=== PATIENT | male | born 1960 | race Caucasian/White ===

== ENCOUNTER 2017-08-29 08:54 | Day surgery (SDC) | payer BC ==
[2017-08-29] MEDS ORDERED: FAMOTIDINE 20 MG TAB PO ONE (09:01)
[2017-08-29] MEDS ORDERED: ASPIRIN EC 325 MG TAB PO ONE (09:01)
[2017-08-29] MEDS ORDERED: diphenhydrAMINE 25 MG CAP PO ONE (09:01)
[2017-08-29] MEDS ORDERED: DIAZEPAM 5 MG TAB PO ONE (09:01)
[2017-08-29] MEDS ORDERED: NS 1,000 ML IV ONE (09:01)
[2017-08-29 09:46] LABS: PLATELET COUNT 215 10^3/uL (150-400)
[2017-08-29 09:56] LABS: INR 1.02 (0.83-1.16); PROTIME(PATIENT) 13.6 SEC (12.0-15.0)
--- NOTE | 2017-08-29 10:51 | CPEKG ---
Heart Rate: 63 RR Interval: 952 P-R Interval: 216 QRSD Interval: 88 QT Interval: 404 QTC Interval: 414 P Girard: 52 QRS Girard: 83 T Wave Girard: 48 EKG Severity - ABNORMAL ECG - EKG Impression: SINUS RHYTHM EKG Impression: FIRST DEGREE AV BLOCK EKG Impression: Possible left atrial abnormality Electronically Signed By: Bruno Beavers 29-Aug-2017 11:06:02
--- NOTE | 2017-08-29 11:01 | PDPROPOC ---
Sedation Plan of Care Sedation Plan of Care: vital signs stable, mental status noted, patient educated of risks, benefits, alternatives, patient can tolerate sedation ASA Classification: ASA 2 Planned drugs: fentanyl, midazolam Mallampati Score: Class 2 Mallampati Reference Image: Patient passed 3-3-2 rule?: Yes
--- NOTE | 2017-08-29 11:01 | PDHPUP ---
History & Physical Update H&P update statement: This history and physical update is based on an assessment of the patient which was completed after admission or registration (within 24 hours), but prior to the surgery/procedure. H&P update: H&P reviewed & patient examined, no change in patient's condition since H&P completed
[2017-08-29] MEDS ORDERED: fentaNYL 100 MCG/2 ML INJ ONE (11:04)
[2017-08-29] MEDS ORDERED: LIDOCAINE 1% 300 MG/30 ML SDV ONE (11:04)
[2017-08-29] MEDS ORDERED: VERAPAMIL 5 MG/2 ML VIAL ONE (11:04)
[2017-08-29] MEDS ORDERED: MIDAZOLAM 2 MG/2 ML VIAL ONE (11:04)
[2017-08-29] MEDS ORDERED: HEPARIN 10,000 UNIT/10 ML MDV (1,000 UNIT/ML) ONE (11:05)
[2017-08-29] MEDS ORDERED: IOPAMIDOL (ISOVUE-370) 150 ML BTL IV ONE (11:05)
[2017-08-29] MEDS ORDERED: NITROGLYCERIN 1,500 MCG/15 ML VIAL MISC ONE (11:50)
--- NOTE | 2017-08-29 11:51 | PDDXCAT ---
Diagnostic Cath Note - . Date: 08/29/17 Copy Cutter: Nick Indication: CCC Class III and IV angina on medical treatment - Procedure Access: right wrist Procedure: left heart catheterization, coronary angiography - Materials Left Heart Cath size: 5F Left Heart Cath materials: standard multipack (JL4, JR4, pigtail), JL3.5 - Findings-Left Heart Catheterization LM: LM is 5mm in size. It trifucates into circumflex, ramus, and LAD system. LAD: There is a 50% ostial LAD lesion. There is instent and in-segment stenosis with serial lesions of 65 and 70%. There is an 80% lesion distal to the LAD stent. LCX: CIrc is 3mm in size. There is a 65% proximal circumflex lesion. There is a 90% obstruction of the circumflex prior to a triple branching obtuse marginal system. There is a bridging collateral from the distal left circumflex to the distal right. RCA: The RCA is 3.5mm in size and dominant. There is a 70% proximal narrowing of the RCA. There is an 90% mid-RCA lesion. The distal RCA is 100% occluded. There is left to right collateral to the distal right coronary. EDP: LVEDP is 20mmHg. LVEF: Normal at 60%. Wall motion: On the LV gram there is normal LV systolic funstion. The EF is 60% . There is no resting segmental wall motion abnormalities. The visualized portion of the thoracic aorta reveals three sinuses of valsalva most consistent with a trileaflet valve. There is no gradient on pullback accross the aortic valve. Complications: None. Estimated blood loss: <50ml Closure method: TR Band Assessment: The patient has a history of HIV with low viral load. He has triple vessel disease and had a bare-metal stent placed in the LAD in 1998. On angiography today, the patient has severe lime vessel coronary diseae involving the right coronary artery, left circumflex and LAD as previouly described. There is relatively well preseved EF, no significant mitral regurgitation or aortic stenosis. Plan: I spoke to Dr. Cruz who agrees with the plan for non-emergent bypass surgery. We will limit the patient's activity until he has the bypass surgery. Antiplatelet therapy with ASA is also recommended specifically a dose of 162 mg per day. His BP also needs to be controlled for a goal systolic pressure of less than 130 mmHg over the terminal press operator. The cholesterol should be treated to a goal LDL cholesterol of 70mg/dL or less, non HDL cholesterol to less than 100mg/ dL. Intervention: None.
[2017-08-29] MEDS ORDERED: OXYCODONE/APAP 5/325 TAB PO PRN (12:31)
[2017-08-29] MEDS ORDERED: ONDANSETRON 4 MG/2 ML VIAL IVP PRN (12:31)
[2017-08-29] MEDS ORDERED: NITROGLYCERIN 0.4 MG BTL SL PRN (12:31)
[2017-08-29] MEDS ORDERED: ATROPINE SULFATE 1 MG/10 ML SYR IVP PRN (12:31)
[2017-08-29] MEDS ORDERED: HYDROCODONE/APAP 5/325 TAB PO PRN (12:31)
== END 2017-08-29 17:06 | disposition home or self-care (01) ==
LOC: FCATH 08:54
PROVIDERS: ATTEND Internal Medicine Cardiovascular Disease
PROC: 4A023N7 Measurement of Cardiac Sampling and Pressure, Left Heart, Percutaneous Approach (ICD-10-PCS; principal; 2017-08-29)
PROC: B2111ZZ Fluoroscopy of Multiple Coronary Arteries using Low Osmolar Contrast (ICD-10-PCS; principal; 2017-08-29)
DX: I25.119 Atherosclerotic heart disease of native coronary artery with unspecified angina pectoris (principal); E78.5 Hyperlipidemia, unspecified; I10 Essential (primary) hypertension; B20 Human immunodeficiency virus [HIV] disease; I25.2 Old myocardial infarction; Z95.818 Presence of other cardiac implants and grafts; F17.200 Nicotine dependence, unspecified, uncomplicated
CPT/HCPCS: 93005; 93458; C1769; J1644; J2250; J3010; Q9967

== ENCOUNTER 2017-09-12 05:47 | Inpatient (IN) | payer BC ==
[~2017-09-12 05:47] MED LIST: AMINOCAPROIC ACID 5 GM/20 ML VIAL IV ONE; INSULIN REGULAR HUMAN 100 UNIT in NS 100 ML IV ONE; MANNITOL 25% 12.5 GM/50 ML VIAL IVP ONE; NOREPINEPHRINE BITARTRATE 16 MG in NS 250 ML IV ONE; PHENYLEPHRINE HCL 50 MG in NS 250 ML IV ONE; SODIUM BICARBONATE 20 MEQ, LIDOCAINE 1% 10 ML in NORMOSOL-R 1,000 ML MISC ONE; VERAPAMIL 5 MG, NITROGLYCERIN 2.5 MG, HEPARIN 500 UNIT, SODIUM BICARBONATE 0.2 MEQ in L... MISC ONE
[2017-09-12] MEDS ORDERED: NOREPINEPHRINE BITARTRATE 16 MG in NS 250 ML IV ONE (06:00)
[2017-09-12] MEDS ORDERED: PHENYLEPHRINE HCL 50 MG in NS 250 ML IV ONE (06:00)
[2017-09-12] MEDS ORDERED: INSULIN REGULAR HUMAN 100 UNIT in NS 100 ML IV ONE (06:00)
[2017-09-12] MEDS ORDERED: SODIUM BICARBONATE 20 MEQ, LIDOCAINE 1% 10 ML in NORMOSOL-R 1,000 ML MISC ONE (06:00)
[2017-09-12] MEDS ORDERED: VERAPAMIL 5 MG, NITROGLYCERIN 2.5 MG, HEPARIN 500 UNIT, SODIUM BICARBONATE 0.2 MEQ in L... MISC ONE (06:00)
[2017-09-12] MEDS ORDERED: MANNITOL 25% 12.5 GM/50 ML VIAL IVP ONE (06:00)
[2017-09-12] MEDS ORDERED: AMINOCAPROIC ACID 5 GM/20 ML VIAL IV ONE (06:00)
[2017-09-12] MEDS ORDERED: ceFAZolin 2 GM/SWFI 2 GM/20 ML SYR IVP ONE (06:22)
[2017-09-12] MEDS ORDERED: LR 1,000 ML IV ONE (06:22)
[2017-09-12] MEDS ORDERED: LIDOCAINE 1% 2 ML INJ ID PRN (06:22)
[2017-09-12] MEDS ORDERED: MUPIROCIN 2% 22 GM OINT NS ONE (06:22)
[2017-09-12] MEDS ORDERED: CITRATE DEXTROSE SOLN 500 ML BAG MISC ONE (06:22)
[2017-09-12] MEDS ORDERED: niCARdipine/NACL 200 ML IV SCH (06:22)
[2017-09-12] MEDS ORDERED: PROTAMINE SULFATE 50 MG/5 ML VIAL IVP ONE (06:34)
[2017-09-12] MEDS ORDERED: MUPIROCIN 2% 22 GM OINT ONE (06:34)
[2017-09-12] MEDS ORDERED: ceFAZolin 2 GM/SWFI 20 ML SYR IVP ONE (06:34)
[2017-09-12] MEDS ORDERED: MILRINONE/DEXTROSE/100 ML BAG IV ONE (06:35)
[2017-09-12] MEDS ORDERED: HEPARIN 10,000 UNIT/10 ML MDV (1,000 UNIT/ML) ONE ×2 (06:35→06:37)
[2017-09-12] MEDS ORDERED: NA BICARBONATE 50 MEQ/50 ML VIAL ONE ×2 (06:35→11:35)
[2017-09-12] MEDS ORDERED: CALCIUM CHLORIDE 1 GM/10 ML INJ ONE ×2 (06:35→06:37)
[2017-09-12] MEDS ORDERED: niCARdipine/NACL/200 ML BAG IV ONE (06:36)
[2017-09-12] MEDS ORDERED: AMIODARONE HCL 150 MG/3 ML VIAL ONE ×2 (06:36→06:38)
[2017-09-12] MEDS ORDERED: ceFAZolin 1 GM VIAL ONE (06:36)
[2017-09-12] MEDS ORDERED: DOPamine/DEXTROSE/250 ML BAG IV ONE ×2 (06:36→14:02)
[2017-09-12] MEDS ORDERED: ADENOSINE 6 MG/2 ML VIAL ONE (06:36)
[2017-09-12] MEDS ORDERED: ALBUMIN 5% 250 ML BOTTLE IV ONE (06:37)
[2017-09-12] MEDS ORDERED: CITRATE DEXTROSE SOLN 500 ML BAG ONE (06:37)
[2017-09-12] MEDS ORDERED: LIDOCAINE 2% 100 MG/5 ML SYR ONE (06:37)
[2017-09-12] MEDS ORDERED: MAGNESIUM SULFATE 1 GM/2 ML VIAL ONE (06:38)
[2017-09-12] MEDS ORDERED: methylPREDNISolone SOD SUCC 1 GM/8 ML VIAL ONE (06:38)
[2017-09-12] MEDS ORDERED: VERAPAMIL 5 MG/2 ML VIAL ONE ×2 (06:58→07:09)
[2017-09-12] MEDS ORDERED: PAPAVERINE HCL 60 MG/2 ML SDV ONE ×2 (06:58→07:09)
[2017-09-12] MEDS ORDERED: MINERAL OIL 10 ML VIAL ONE (06:58)
[2017-09-12] MEDS ORDERED: MIDAZOLAM 2 MG/2 ML VIAL IVP ONE (07:04)
--- NOTE | 2017-09-12 07:04 | PDANEPAE ---
ANE History of Present Illness here for cabg ANE Past Medical History - Cardiovascular History Hx Hypertension: Yes Hx Arrhythmias: No Hx Chest Pain: Yes Hx Coronary Artery / Peripheral Vascular Disease: Yes Hx CHF / Valvular Disease: No Hx Palpitations: No Cardiovascular History Comment: [place] 19 yrs ago with stent placement - Pulmonary History Hx COPD: No Hx Asthma/Reactive Airway Disease: No Hx Recent Upper Respiratory Infection: No Hx Oxygen in Use at Home: No Hx Sleep Apnea: No Sleep Apnea Screening Result - Last Documented: Positive - Neurologic History Hx Cerebrovascular Accident: No Hx Seizures: No Hx Dementia: No - Endocrine History Hx Diabetes: No - Renal History Hx Renal Disorders: No - Liver History Hx Hepatic Disorders: No - Neurological & Psychiatric Hx Hx Neurological and Psychiatric Disorders: No - Cancer History Hx Cancer: No - Congenital Disorder History Hx Congenital Disorders: No - GI History Hx Gastrointestinal Disorders: No - Other Health History Other Health History: none - Chronic Pain History Chronic Pain: No - Surgical History Prior Surgeries: none ANE Review of Systems Review of systems is: negative Review of Systems: - Exercise capacity Exercise capacity: <4 METS METS (RN): 3 METS ANE Patient History - Allergies Allergies/Adverse Reactions: Sulfa (Sulfonamide Antibiotics) Allergy (Verified 04/26/15 12:07) - Home Medications Home medications: home medication list seen and reviewed Home Medications: Aspirin [Aspirin 81mg (*)] 04/26/15 [Last Taken 08/29/17 07:00] Lisinopril [Zestril 10 mg (*)] 04/26/15 [Last Taken 08/29/17 07:00] Metoprolol Tartrate [Lopressor 50 mg (*)] 04/26/15 [Last Taken 08/29/17 07:00] Rosuvastatin Calcium [Crestor 10mg (RX)] 04/26/15 [Last Taken 08/29/17 07:00] Dolutegravir Sodium [Tivicay] 08/22/17 [Last Taken 08/29/17 07:00] Emtricitabine/Tenofovir [Truvada 200MG/300MG (*)] 08/22/17 [Last Taken 07:00] - NPO status NPO Status: no food or drink >8 hours - Smoking Hx Smoking Status: Current some day smoker - Family Anes Hx Family Hx Anesthesia Complications: none ANE Labs/Vital Signs - Vital Signs Vital Signs: reviewed preoperatively; see RN documention for details Height: 180.34 cm Weight: 73.482 kg ANE Physical Exam - Airway Neck exam: FROM Mallampati Score: Class 1 - Pulmonary Pulmonary: no respiratory distress - Cardiovascular Cardiovascular: regular rate and rhythym - ASA Status ASA Status: IV ANE Anesthesia Plan Anesthesia Plan: general endotracheal anesthesia Lines/Monitors: arterial line, central line
[2017-09-12] MEDS ORDERED: PROPOFOL/EMULSION 500 MG/50 ML BOTTLE IV ONE (07:08)
[2017-09-12] MEDS ORDERED: fentaNYL 250 MCG/5 ML INJ ONE ×2 (07:09→07:48)
[2017-09-12] MEDS ORDERED: MIDAZOLAM 2 MG/2 ML VIAL ONE (07:13)
[2017-09-12] MEDS ORDERED: KETAMINE 200 MG/20 ML VIAL ONE (07:48)
[2017-09-12] MEDS ORDERED: MAGNESIUM SULF 2 GM/WATER 50 ML BAG IV ONE (10:02)
[2017-09-12] MEDS ORDERED: SUGAMMADEX SODIUM 200 MG/2 ML VIAL IVP ONE (10:09)
[2017-09-12] MEDS ORDERED: HYDROmorphONE/DILAUDID 2 MG/ML INJ ONE (10:13)
[2017-09-12] MEDS ORDERED: PROPOFOL 200 MG/20 ML VIAL ONE (10:21)
[2017-09-12] MEDS ORDERED: ACETAMINOPHEN 650 MG SUPP PR PRN (10:38)
[2017-09-12] MEDS ORDERED: CEPACOL LOZENGE PO PRN (10:38)
[2017-09-12] MEDS ORDERED: MEPERIDINE 25 MG/ML SYR IVP PRN (10:38)
[2017-09-12] MEDS ORDERED: MAGNESIUM HYDROXIDE 30 ML UDCUP PO PRN (10:38)
[2017-09-12] MEDS ORDERED: LACTULOSE 20 GM/30 ML UDCUP PO PRN (10:38)
[2017-09-12] MEDS ORDERED: ONDANSETRON DISINTEGRATING 4 MG TAB PO PRN (10:38)
[2017-09-12] MEDS ORDERED: ONDANSETRON 4 MG/2 ML VIAL IVP PRN (10:38)
[2017-09-12] MEDS ORDERED: METOCLOPRAMIDE 10 MG/2 ML VIAL IVP PRN (10:38)
[2017-09-12] MEDS ORDERED: MAGNESIUM SULF 2 GM/WATER 50 ML IV ONE (10:38)
[2017-09-12] MEDS ORDERED: BISACODYL 10 MG SUPP PR PRN (10:38)
[2017-09-12] MEDS ORDERED: ACETAMINOPHEN 325 MG TAB PO PRN (10:38)
[2017-09-12] MEDS ORDERED: PANTOPRAZOLE SODIUM 40 MG VIAL IVP ONE (10:38)
[2017-09-12] MEDS ORDERED: POLYETHYLENE GLYCOL 3350 17 GM PKT PO PRN (10:38)
[2017-09-12] MEDS ORDERED: SODIUM CL NASAL 45 ML BTL EACHNARE PRN (10:38)
[2017-09-12] MEDS ORDERED: D50W 25 GM/50 ML SYR IVP PRN (10:38)
[2017-09-12] MEDS ORDERED: NS 1,000 ML IV SCH (10:45)
[2017-09-12] MEDS ORDERED: INSULIN REGULAR HUMAN 100 UNIT in NS 100 ML IV SCH (11:00)
--- NOTE | 2017-09-12 11:02 | GOP ---
[f rep st] OPERATIVE REPORT DATE OF OPERATION: 09/12/2017 SURGEON: Tez Cruz DO FURNITURE MOVER HELPER: Chuy Arguelles PA-C ANESTHESIOLOGIST: Vasquez Hicks MD PREOPERATIVE DIAGNOSIS: Unstable angina pectoris with severe left ventricular dysfunction. POSTOPERATIVE DIAGNOSIS: Unstable angina pectoris with severe left ventricular dysfunction. PROCEDURE PERFORMED: 1. Coronary bypass grafting x3 with the left internal mammary artery to the left anterior descending , saphenous vein graft to the lateral circumflex, and saphenous vein graft to the PDA. 2. Left atrial clip application with AtriClip #40 mm. FINDINGS: Patient had crescendo angina, underwent diagnostic left heart cath and was noted to have s evere 3-vessel disease. DESCRIPTION OF PROCEDURE: He was consented for surgery, brought to the operating room, intubated, mo nitoring lines were placed. He was prepped and draped in sterile classical manner. Sternotomy was pe rformed. The mammary was harvested, it was a good 2.8 mm vessel with brisk flow. The vein was harve sted endoscopically by SHANTELL Carr from the left thigh, which was good quality vein measuring 3 m m in diameter. He was heparinized, cannulated, bypass was begun and cardioplegic arrest was obtained with antegrade cardioplegia, topical hypothermia, and systemic cooling. Initially, the posterior de scending branch was grafted in the midportion which ended up being a better quality vessel than it ap peared on cath, measuring 2.5-2.7 mm. Proximal anastomosis was completed with cross-clamp onto the as cending aorta. We then performed AtriClip application to the left atrial appendage flush with the le ft atrium as a prophylactic measure. We then proceeded with grafting the lateral circumflex, where i t measured 2.8-3 mm, markedly better quality vessel than what it appeared at angiography. This was t hen brought off the ascending aorta with continuous running 5-0 Prolene suture. We then had discusse d the ramus branch with Dr. Romero who felt that there was no significant obstructive disease and I a greed. Initially, I thought there may be on early injections when initially evaluated several weeks prior. However, our review felt that there was no significant disease and the vessel was palpably so ft, without obvious plaquing to palpation. We then proceeded with grafting a 2.8 mm LAD with good qu ality mammary in the midportion, tacked to the epicardium having been brought through a lateral peric ardial incision. The cross-clamp was then removed with suction on the ascending aortic vent. Sponta neous cardiac activity was noted to resume. Patient was rewarmed, weaned from bypass. Heparin was re versed with protamine. Cannula was removed and oversewn. Two ventricular pacing wires, 1 left pleur al and 1 mediastinal drain were placed. The thymic fat and pericardium were closed. Chest was close d in standard fashion. Patient was returned to ICU in stable condition. /[id number]/MODL
[2017-09-12] MEDS ORDERED: KETOROLAC 15 MG/1 ML SDV ONE (11:06)
[2017-09-12] MEDS: ALBUMIN 5% 250 ML IV PRN ×3 (12:07→22:40)
[2017-09-12] MEDS ORDERED: NA BICARBONATE 50 MEQ/50 ML VIAL IV ONE (12:30)
[2017-09-12] MEDS ORDERED: KETOROLAC 15 MG/1 ML SDV IVP ONE (12:30)
[2017-09-12] MEDS: fentaNYL 100 MCG/2 ML INJ IVP PRN ×2 (13:00→14:39)
[2017-09-12] MEDS ORDERED: ceFAZolin 2 GM/DEXTROSE 100 ML IV SCH (14:00)
[2017-09-12] MEDS: ceFAZolin 2 GM/SWFI 2 GM/20 ML SYR IVP SCH ×2 (14:16→21:48)
[2017-09-12] MEDS: HYDROCODONE/APAP 5/325 TAB PO PRN (15:27)
[2017-09-12] MEDS: POTASSIUM Cl (KCl) 50 ML IV PRN ×2 (15:28→23:11)
[2017-09-12] MEDS: DEXMEDETOMIDINE HCL 400 MCG in NS 100 ML IV SCH (16:13)
--- NOTE | 2017-09-12 16:55 | POSTANESTH ---
Post Anesthetic Evaluation Cardiovascular Status: Normal, Stable Respiratory Status: Normal, Stable Level of Consciousness/Mental Status: Can Participate in Eval Pain Control: Adequate, Prn Tx Ordered Nausea/Vomiting Control: Adequate, Prn Tx Ordered Complications Possibly Related to Anesthesia: None Noted
[2017-09-12] MEDS: SENNOSIDES/DOCUSATE SODIUM TAB PO SCH (20:01)
[2017-09-12] MEDS: MUPIROCIN 2% 22 GM OINT NS SCH (20:05)
[2017-09-13] MEDS: HYDROCODONE/APAP 5/325 TAB PO PRN ×3 (01:54→21:25)
[2017-09-13] MEDS: DEXMEDETOMIDINE HCL 400 MCG in NS 100 ML IV SCH (03:09)
[2017-09-13 05:14] LABS: PLATELET COUNT 142 10^3/uL (150-400)
[2017-09-13] MEDS: ceFAZolin 2 GM/SWFI 2 GM/20 ML SYR IVP SCH ×3 (05:31→21:28)
[2017-09-13] MEDS: HEPARIN 5,000 UNIT/0.5 ML SYR SC SCH ×3 (05:33→21:34)
--- NOTE | 2017-09-13 06:51 | SOAPPROG ---
SOAP Progress Note Assessment/Plan: Assessment: POD#1 CABG x 3 (BROWN-LAD, SV-LCX, SV-PDA), prophylactic AtriClip ligation left atrial appendage Sx CAD with preserved LV systolic fx - s/p CABG. Extubated in the OR. Hemodynamically stable early postop course - on low dose dopa to counter post CPB and narc vasodilatation. No tachyarrhythmias or backup pacing. Adequate autodiuresis of modest volume overload. Secondary prevention with baby ASA, BB as allowed by BP and statin when eating well. Postop acute respiratory insufficiency - Extubated in the OR. Progressive increase in suppl O2 needs secondary to pain and splinting. CXR neg for PTX or sig pulm vasc congestion. Analgesic adjustments in progress. Acute expected blood loss anemia - Stable. No transfusions required. VTE prophylaxis with SQ hep. HIV positive - Low viral load. Chronic meds resumed. Plan: Routine POD#1 orders re. wires, drains, orals and mobility. Crystalloid prn CVP < 15. Wean dopa to SBP > 90. Toradol 30 mg prn severe breakthrough pain. Xanax 0.25 mg TID prn. Consider add dilaudid. Slow advancement of diet. 09/13/17 06:50 Subjective: Currently comfortable. Hurts to move or take a deep breath. No nausea or dizziness. Objective: Vital Signs Temp Pulse Resp BP Pulse Ox 37.2 C 83 25 H 83/55 L 89 L 09/13/17 05:00 09/13/17 06:00 09/13/17 06:00 09/13/17 06:00 09/13/17 06:00 Laboratory Results 09/13/17 05:00 09/13/17 05:00 09/12/17 09/13/17 09/14/17 05:59 05:59 05:59 Intake Total 2947 Output Total 1625 100 Balance 1322 -100 Morphine, fentanyl, toradol and precedex overnoc for pain/agitation. HR stable, 70s-80s. Dopa 2-3 mcg for MAP > 65. 6 lpm suppl O2 overnoc, up to 13 lpm oxymizer this am. CXR -> hypoventilation, no PTX, no sig pulm vasc congestion, bibasilar atelectasis +/- small pleural effusions, decr but still abundant stomach gas. Modest CTOP. Positive fluid balance, +2.5 kg overall. Labs as expected. Physical Exam - Physical Exam General Appearance: alert, mild distress (with movement) Respiratory: crackles (bases), other (blakes x 3 y-d to pleurovac, serosang drainage, no air leak) Cardiac/Chest: regular rate, rhythm, other (Sternotomy CDI. Vwires intact.) Abdomen: normal bowel sounds, non-tender, distended Skin: warm/dry Extremities: swelling (trace generalized), other (LLE wrap intact) ICD10 Worksheet Patient Problems: Problems Problem Status Onset S/P CABG x 3 Acute Coronary artery disease Acute HIV (human immunodeficiency virus infection) Acute
[2017-09-13] MEDS: ALBUMIN 5% 250 ML IV PRN (07:20)
[2017-09-13] MEDS ORDERED: KETOROLAC 30 MG/1 ML SDV IVP ONE (08:14)
[2017-09-13] MEDS ORDERED: EMTRICITABINE/TENOFOVIR 200MG/300MG TAB PO SCH (09:00)
[2017-09-13] MEDS: ASPIRIN 81 MG CHEWABLE TAB PO SCH (09:15)
[2017-09-13] MEDS: SENNOSIDES/DOCUSATE SODIUM TAB PO SCH ×2 (09:15→21:27)
[2017-09-13] MEDS: PANTOPRAZOLE SODIUM 40 MG TAB PO SCH (09:15)
[2017-09-13] MEDS: ALPRAZolam 0.25 MG TAB PO SCH ×3 (09:15→21:28)
[2017-09-13] MEDS: MUPIROCIN 2% 22 GM OINT NS SCH ×2 (09:20→21:35)
[2017-09-13] MEDS: Dolutegravir Sodium [Tivicay] 50 MG PO SCH (09:39)
[2017-09-13] MEDS: EMTRICITABINE/TENOFOVIR 200MG/300MG TAB PO SCH (09:44)
--- NOTE | 2017-09-13 10:34 | PCMIDPN ---
Assessment/Plan: 1. Severe [place] valve coronary artery disease in patient with underlying HIV status post 3 vessel CABG: Sincerely appreciate cardiothoracic surgery service excellent care. Continue prophylactic cefazolin as written, and antiretrovirals in the form of Truvada and Dolutegravir. (patient's insurance company will not cover new formulation of Truvada, Descov[place]). Informed Sally, of pharmacy that the patient should stay away from cation binders, such as Tums, as it can bind Dolutegravir. If he needs an antacid, can use Zantac or Pepcid or a proton pump inhibitor. 09/13/17 10:32 Subjective: Paid patient a social visit today. Status post 3 vessel CABG. Decent spirits. Worried about his blood pressure. Objective: Prophylactic cefazolin Truvada/Dolutegravir daily Vital Signs Temp Pulse Resp BP Pulse Ox 36.5 C 91 20 98/54 L 91 L 09/13/17 07:44 09/13/17 09:55 09/13/17 09:55 09/13/17 09:55 09/13/17 09:55 Laboratory Results 09/13/17 05:00 09/13/17 05:00 09/12/17 09/13/17 09/14/17 05:59 05:59 05:59 Intake Total 2947 Output Total 1625 100 Balance 1322 -100 - Physical Exam General Appearance: alert, no apparent distress ICD10 Worksheet Patient Problems: Problems Problem Status Onset S/P CABG x 3 Acute Coronary artery disease Acute HIV (human immunodeficiency virus infection) Acute
--- NOTE | 2017-09-13 11:28 | ASMTCASEMG ---
Living Arrangements What is your living Answers: With Spouse arrangement? Who do you live with? Type Of Residence What kind of residence do Answers: House you live in? Discharge Plan Comments Coordination Status Comments Notes: Patient is a 56yo male who was admitted for a CABGx3. He did well through the surgery and was extubated yesterday. Patient is having some problems with BP and pain issues. Patient's Wilber is at his bedside. PT/OT have been ordered. D/C plan TBD. CM will follow. Date Signed: 09/13/2017 11:27 AM Electronically Signed By:Katarina Simpson LCSW
[2017-09-13] MEDS ORDERED: HYDROmorphONE/DILAUDID 1 MG/ML INJ IVP PRN (12:51)
[2017-09-13] MEDS: HYDROmorphone HCL/NS 0.5 MG/ML SYR IVP PRN (15:10)
[2017-09-13] MEDS ORDERED: AMIODARONE HCL 150 MG/100 ML BAG (1.5 MG/ML) IV ONE (18:47)
[2017-09-13] MEDS ORDERED: AMIODARONE A.FIB-LOAD DOSE(ORDER 1/3) PREMIX IV ONE (19:00)
[2017-09-13] MEDS ORDERED: AMIODARONE A.FIB-6HR INFSN (ORDER 2/3) PREMIX IV ONE (19:00)
[2017-09-13] MEDS: HYDROmorphONE/DILAUDID 2 MG TAB PO PRN (19:28)
[2017-09-14] MEDS: HYDROmorphONE/DILAUDID 2 MG TAB PO PRN ×6 (00:10→22:43)
[2017-09-14] MEDS ORDERED: AMIODARONE A.FIB-18HR INFSN (ORDER 3/3) IV ONE (01:35)
[2017-09-14] MEDS: HYDROCODONE/APAP 5/325 TAB PO PRN (02:33)
[2017-09-14] MEDS: HEPARIN 5,000 UNIT/0.5 ML SYR SC SCH ×3 (06:17→22:43)
--- NOTE | 2017-09-14 07:41 | SOAPPROG ---
SOAP Progress Note Assessment/Plan: Assessment: POD#2 CABG x 3 (BROWN-LAD, SV-LCX, SV-PDA), prophylactic AtriClip ligation left atrial appendage Sx CAD with preserved LV systolic fx - s/p CABG. Extubated in the OR. Hemodynamically stable early postop course. Transient low dose dopa to counter post CPB and narc vasodilatation. No backup pacing. No significant volume overload. Secondary prevention with baby ASA, BB as allowed by BP and statin when eating well. Postop acute respiratory insufficiency - Extubated in the OR. Progressive increase in suppl O2 needs POD#1 secondary to pain and splinting. CXR neg for PTX or sig pulm vasc congestion. Appears to be resolving with analgesic adjustments. Postop AF - Onset last night with VVR. Improved rate control with amio. Sporadic recovery of ST. Adjunctive BB as tolerated. Acute expected blood loss anemia - Stable. No transfusions required. VTE prophylaxis with SQ hep. HIV positive - Low viral load. Chronic meds resumed. Plan: Begin diuresis. Start metoprolol 12.5 mg BID later today. Transition amio to orals tonight. Cont inc activity as tolerated. Tx to PCU. 09/14/17 07:41 Subjective: More comfortable. Improving mobility, IS and appetite. Objective: Vital Signs Temp Pulse Resp BP Pulse Ox 36.9 C 124 H 18 111/67 92 09/14/17 06:00 09/14/17 06:00 09/14/17 06:00 09/14/17 06:00 09/14/17 06:00 Laboratory Results 09/14/17 04:30 09/14/17 04:30 09/13/17 09/14/17 09/15/17 05:59 05:59 05:59 Intake Total 2947 1282 Output Total 1625 1465 Balance 1322 -183 Off dopa with onset of AF. Maintaining SBPs > 110. Suppl O2 back down to 6 lpm. CXR-> inc pulm vasc congestion and rt pl effusion. Balanced I/Os. Labs ok. Physical Exam - Physical Exam General Appearance: alert, no apparent distress Respiratory: crackles (bases), other (blakes x 2 to bulb suction, serosang drainage) Cardiac/Chest: tachycardia, irregularly irregular, other (Sternotomy CDI. Vwires intact.) Abdomen: normal bowel sounds, non-tender, soft Skin: warm/dry Extremities: other (No visible edema. LLE venotomy CDI.) ICD10 Worksheet Patient Problems: Problems Problem Status Onset S/P CABG x 3 Acute Coronary artery disease Acute HIV (human immunodeficiency virus infection) Acute
[2017-09-14] MEDS ORDERED: AMIODARONE HCL 100 ML IV ONE ×2 (08:13→10:45)
[2017-09-14] MEDS ORDERED: FUROSEMIDE 40 MG/4 ML VIAL IVP ONE (08:19)
[2017-09-14] MEDS: SENNOSIDES/DOCUSATE SODIUM TAB PO SCH ×2 (08:44→22:43)
[2017-09-14] MEDS: ASPIRIN 81 MG CHEWABLE TAB PO SCH (08:44)
[2017-09-14] MEDS: PANTOPRAZOLE SODIUM 40 MG TAB PO SCH (08:45)
[2017-09-14] MEDS: EMTRICITABINE/TENOFOVIR 200MG/300MG TAB PO SCH (08:48)
[2017-09-14] MEDS: Dolutegravir Sodium [Tivicay] 50 MG PO SCH (08:48)
[2017-09-14] MEDS: MUPIROCIN 2% 22 GM OINT NS SCH (08:49)
[2017-09-14] MEDS ORDERED: POTASSIUM CL 10 MEQ TAB PO ONE (09:00)
[2017-09-14] MEDS: HYDROmorphone HCL/NS 0.5 MG/ML SYR IVP PRN (09:15)
[2017-09-14] MEDS: ALPRAZolam 0.25 MG TAB PO SCH (10:26)
[2017-09-14] MEDS: METOPROLOL TARTRATE 25 MG TAB PO SCH ×4 (12:20→19:43)
[2017-09-14] MEDS ORDERED: ALPRAZolam 0.25 MG TAB PO PRN (14:00)
[2017-09-14] MEDS ORDERED: METOPROLOL TARTRATE 5 MG/5 ML INJ ONE (16:05)
[2017-09-14] MEDS ORDERED: METOPROLOL TARTRATE 5 MG/5 ML INJ IVP ONE (16:15)
[2017-09-14] MEDS: AMIODARONE HCL 200 MG TAB PO SCH (19:42)
[2017-09-14] MEDS: OXYCODONE/APAP 5/325 TAB PO PRN (19:43)
[2017-09-15] MEDS: OXYCODONE/APAP 5/325 TAB PO PRN ×3 (02:42→18:22)
[2017-09-15] MEDS: HYDROmorphONE/DILAUDID 2 MG TAB PO PRN ×4 (04:45→21:46)
[2017-09-15] MEDS: HEPARIN 5,000 UNIT/0.5 ML SYR SC SCH (05:51)
[2017-09-15] MEDS: AMIODARONE HCL 200 MG TAB PO SCH ×2 (05:55→21:44)
--- NOTE | 2017-09-15 07:18 | SOAPPROG ---
SOAP Progress Note Assessment/Plan: Assessment: POD#3 CABG x 3 (BROWN-LAD, SV-LCX, SV-PDA), prophylactic AtriClip ligation left atrial appendage Sx CAD with preserved LV systolic fx - s/p CABG. Extubated in the OR. Hemodynamically stable early postop course. Transient low dose dopa to counter post CPB and narc vasodilatation. No backup pacing. No significant volume overload. Secondary prevention with baby ASA, BB as allowed by BP and statin when eating well. Postop acute respiratory insufficiency - POD#1, exacerbated by pain and splinting. Resolved with analgesic adjustments. Postop PAF - Onset POD#2 with VVR. SR transiently restored with amio. Adequate rate control with adjunctive BB. Antithrombotic prophylaxis with Eliquis. Acute expected blood loss anemia - Stable. No transfusions required. VTE prophylaxis with Eliquis. HIV positive - Low viral load. Chronic meds resumed. Plan: Hold diuresis. Replete K. Cont metoprolol 12.5 mg BID. Cont amio 200 mg BID. Consider chest tube and TCPW removal later today. Cont inc activity as tolerated. Dispo - Anticipate home without services tomorrow or 09/15/17 07:14 Subjective: Better each day. Adequate analgesia. Hopeful for BM and home soon. Objective: Vital Signs Temp Pulse Resp BP Pulse Ox 36.9 C 78 18 91/58 L 92 09/15/17 04:00 09/15/17 04:00 09/15/17 04:00 09/15/17 04:00 09/15/17 04:00 Laboratory Results 09/14/17 04:30 09/15/17 05:50 09/14/17 09/15/17 09/16/17 05:59 05:59 05:59 Intake Total 1282 1867 Output Total 1465 2955 Balance -183 -1088 In and out of AF. Rates controlled. Vigorous diuresis yest without hypotension or inc Cr. Almost at admit wt. Suppl O2 req down to 2 lpm. CTOP approaching removal criteria. Physical Exam - Physical Exam General Appearance: alert, no apparent distress Respiratory: lungs clear (grossly), other (blakes x 2 to bulb suction, thin serosang drainage) Cardiac/Chest: irregularly irregular, other (Sternotomy and LLE venotomy CDI. Vwires intact.) Abdomen: non-tender, soft Skin: warm/dry Extremities: other (no visible edema) ICD10 Worksheet Patient Problems: Problems Problem Status Onset S/P CABG x 3 Acute Coronary artery disease Acute HIV (human immunodeficiency virus infection) Acute
[2017-09-15] MEDS ORDERED: POTASSIUM CL 20 MEQ TAB PO ONE (08:00)
[2017-09-15] MEDS ORDERED: SENNOSIDES/DOCUSATE SODIUM TAB PO PRN (09:00)
[2017-09-15] MEDS: METOPROLOL TARTRATE 25 MG TAB PO SCH ×2 (09:01→21:43)
[2017-09-15] MEDS: ROSUVASTATIN CALCIUM 10 MG TAB PO SCH (09:01)
[2017-09-15] MEDS: ASPIRIN 81 MG CHEWABLE TAB PO SCH (09:01)
[2017-09-15] MEDS: APIXABAN 5 MG TAB PO SCH ×2 (09:01→21:42)
[2017-09-15] MEDS: PANTOPRAZOLE SODIUM 40 MG TAB PO SCH (09:01)
[2017-09-15] MEDS: EMTRICITABINE/TENOFOVIR 200MG/300MG TAB PO SCH (09:02)
[2017-09-15] MEDS: Dolutegravir Sodium [Tivicay] 50 MG PO SCH (09:02)
[2017-09-16] MEDS: HYDROmorphONE/DILAUDID 2 MG TAB PO PRN ×2 (03:31→07:54)
--- NOTE | 2017-09-16 07:06 | SOAPPROG ---
SOAP Progress Note Assessment/Plan: Assessment: POD#4 CABG x 3 (BROWN-LAD, SV-LCX, SV-PDA), prophylactic AtriClip ligation left atrial appendage Sx CAD with preserved LV systolic fx - s/p CABG. Extubated in the OR. Hemodynamically stable early postop course. Transient low dose dopa to counter post CPB and narc vasodilatation. No backup pacing. No significant volume overload. Adequate autodiuresis. Tubes and wires out. Secondary prevention with baby ASA, BB, and statin. Postop acute respiratory insufficiency - POD#1, exacerbated by pain and splinting. Resolved with analgesic adjustments. Postop PAF - Onset POD#2 with VVR. SR transiently restored with amio. Adequate rate control with adjunctive BB. Antithrombotic prophylaxis with Eliquis. Acute expected blood loss anemia - Stable. No transfusions required. VTE prophylaxis with Eliquis. HIV positive - Low viral load. Chronic meds resumed. Plan: Ok for discharge home without services. Instructions re diet, meds, activity, wound care and f/u to be reviewed in presence of partner. 09/16/17 07:04 Subjective: Feels well. Tolerating light activity with relative ease. +BMs. Would like to go home. Objective: Vital Signs Temp Pulse Resp BP Pulse Ox 37.0 C 86 20 131/70 H 92 09/16/17 04:00 09/16/17 04:00 09/16/17 04:00 09/16/17 04:00 09/16/17 04:00 Laboratory Results 09/14/17 04:30 09/15/17 05:50 09/15/17 09/16/17 09/17/17 05:59 05:59 05:59 Intake Total 1867 1285 200 Output Total 2955 730 Balance -1088 555 200 Holding SR since yest afternoon. Min suppl O2 needs. Balanced I/Os. Below admit wt. Physical Exam - Physical Exam General Appearance: alert, no apparent distress Respiratory: crackles (left base, o/w CTA) Cardiac/Chest: regular rate, rhythm, other (Sternum grossly stable. Sternotomy and LLE venotomy CDI) Abdomen: non-tender, soft Skin: warm/dry Extremities: other (no visible edema) ICD10 Worksheet Patient Problems: Problems Problem Status Onset Acute blood loss anemia Acute Paroxysmal atrial fibrillation Acute S/P CABG x 3 Acute ~09/12/17 Coronary artery disease Acute HIV (human immunodeficiency virus infection) Acute
[2017-09-16] MEDS: ASPIRIN 81 MG CHEWABLE TAB PO SCH (07:54)
[2017-09-16] MEDS: APIXABAN 5 MG TAB PO SCH (07:54)
[2017-09-16] MEDS: METOPROLOL TARTRATE 25 MG TAB PO SCH (07:54)
[2017-09-16] MEDS: AMIODARONE HCL 200 MG TAB PO SCH (07:54)
[2017-09-16] MEDS: PANTOPRAZOLE SODIUM 40 MG TAB PO SCH (07:54)
[2017-09-16 07:57] VITALS: BP 135/76
[2017-09-16] MEDS: EMTRICITABINE/TENOFOVIR 200MG/300MG TAB PO SCH (08:00)
[2017-09-16] MEDS: Dolutegravir Sodium [Tivicay] 50 MG PO SCH (08:00)
--- NOTE | 2017-09-16 08:58 | ASDISCHSUM ---
Discharge Information Plan Status:Home with No Needs Medically Cleared to Leave:09/16/2017 Discharge Date:09/16/2017 CM D/C Disposition:Home, Routine, Self-Care ADT D/C Disposition:Home, Routine, Self-Care Projected Discharge Date:09/16/2017 Transportation at D/C:Family Discharge Delay Reason: Follow-Up Date:09/16/2017 Discharge Slot: Final Diagnosis: Placement Information Patient Contact Information Contact Name:CONNIE Relationship: Address:[address] Work Phone: [facility]:[place] Alternate Phone: State/Zip Code:[place] [address] Email: Financial Information Financial Class:HMO and PPO Plans Primary Plan Desc:[facility] Primary Plan Number:[id number] Secondary Plan Desc: Secondary Plan Number: Assessment Information LACE LACE Length of stay for Answers: 4-6 days current admission Acuity / Level of Answers: Yes Care: Did the patient have an inpatient admission? Comorbidities - select Answers: AIDS all that apply Coronary Artery Disease Other Notes: CABGx3 # of Emergency department Answers: 0 visits in the last 6 months Score: 14 Date Signed: 09/16/2017 08:56 AM Electronically Signed By:Azalia Quiñones RN [facility] Initial CM Assessment Living Arrangements What is your living Answers: With Spouse arrangement? Who do you live with? Type Of Residence What kind of residence do Answers: House you live in? Discharge Plan Comments Coordination Status Comments Notes: Patient is a 56yo male who was admitted for a CABGx3. He did well through the surgery and was extubated yesterday. Patient is having some problems with BP and pain issues. Patient's Wilber is at his bedside. PT/OT have been ordered. D/C plan TBD. CM will follow. Date Signed: 09/13/2017 11:27 AM Electronically Signed By:Katarina Simpson LCSW Case Management Discharge Plan Note Case Management Discharge Discharge Order Complete? Answers: Yes Patient to Obtain Answers: Independently Medications Transportation Arranged Answers: Family/Friends Discharge Comments Notes: Per Kathy Prince, pt to d/c independent with follow up as directed. Date Signed: 09/16/2017 08:57 AM Electronically Signed By:Azalia Quiñones RN Intervention Information
--- NOTE | 2017-09-16 09:40 | PDHOMEO2F ---
Home Oxygen Face to Face Home Orders: I certify that a physician or a nurse practitioner or physician's gift shop assistant has had a [id number] encounter with this patient on the date of this order due to the diagnosis listed, which relates to the primary reason the patient requires home oxygen. Alternative treatments have been tried, or considered, and deemed ineffective. It is anticipated that supplemental oxygen will result in improvement with treatment. Home oxygen qualifying diagnosis: CAD SpO2 on room air (%): 84 Frequency of home oxygen needed: continuous Home oxygen liters per minute: 2 Home oxygen delivery device: nasal cannula Concentrator: Yes E-tanks for mobility and back up: Yes If ordering portable O2, is the patient mobile in the home?: Yes I certify that, based on these findings, the home oxygen is medically necessary for this patient for the following length of time. Length of time home oxygen needed: 1 month
[2017-09-16] MEDS: ROSUVASTATIN CALCIUM 10 MG TAB PO SCH (11:27)
[2017-09-16] MEDS: OXYCODONE/APAP 5/325 TAB PO PRN (11:27)
--- NOTE | 2017-09-16 13:44 | PDDCSUM ---
Discharge Summary Discharge Summary: DATE OF ADMISSION: 09/12/17 DATE OF DISCHARGE: 09/16/17 DISPOSITION: Home, self-care PRINCIPAL ADMISSION DIAGNOSES: Severe multivessel coronary artery disease PRINCIPAL DISCHARGE DIAGNOSES: 1. Status post coronary artery bypass grafting x 3 2. Status post prophylactic clip ligation of the left atrial appendage 3. Acute expected blood loss anemia 4. Postoperative acute respiratory insufficiency exacerbated by pain 5. Postoperative paroxysmal atrial fibrillation HISTORY OF PRESENT ILLNESS: 56 yo male with known CAD and 6-8 wk hx of anginal symptoms found to have severe progressive multivessel CAD (including 70% ISR of LAD) with mild LVDD and preserved LVEF. Admitted for elective surgical revascularization. PERTINENT PAST MEDICAL HISTORY: CAD s/p AMI 1998 treated with BMS of LAD, HTN, dyslipidemia, HIV positive with low viral loads and good tolerance to antiretrovirals MEDICATIONS ON ADMISSION: ASA 162 mg daily, Metoprolol tartrate 50 mg BID, Lisinopril 10 mg daily, Crestor 10 mg daily, Truvada 200mg/300mg one tab daily, Tivicay 50 mg daily ALLERGIES/SENSITIVITIES: sulfa causing itchiness CONSULTANTS: none PROCEDURES/IMAGIN/3 (Anthony): Coronary artery bypass grafting x 3 (BROWN-LAD, SV-LCX, SV-PDA). Prophylactic AtriClip ligation of the left atrial appendage. ABBREVIATED HOSPITAL COURSE BY ACTIVE PROBLEM LIST: 1. Sx CAD with preserved LV systolic fx - s/p CABG. Extubated in the OR. Hemodynamically stable early postop course. No prolonged vasoactive support. No significant volume overload. No bradyarrhythmias. Adequate auto-diuresis. Secondary prevention with baby ASA, BB, and statin. 2. Postop acute respiratory insufficiency - POD#1, exacerbated by pain and splinting. Resolved with analgesic adjustments. 3. Postop PAF - Onset POD#2 with VVR. SR restored with amio and adjunctive BB. Antithrombotic prophylaxis with Eliquis. 4. Acute expected blood loss anemia - Stable. No transfusions required. DISCHARGE CLINICAL INFORMATION: Sternum grossly stable. Sternotomy and LLE venotomy CDI, sutured, +Dermabond. HR 80s, sinus 1st degree AVB. SBP 90s-130s. SpO2 84% RA, correcting to 92% on 2 Lpm O2. Wt 0.7 kg below admission at 73.5 kilos. Hgb 9.6, HCT 29.9, Plt 131, Na 140, K 3.6, Cr 0.6 DISCHARGE MEDICATIONS: As on admission with the following adjustments: 1. Reduce ASA to 81 mg while on Eliquis. 2. Decrease metoprolol tartrate to 12.5 mg BID (new Rx with 25 mg tab given). 3. Hold lisinopril. NEW prescriptions: 1. Amiodarone 200 mg BID thru 09/27, then 200 mg daily x 2 weeks (or until out of tabs). 2. Eliquis 5 mg BID x 1 month. 3. Dilaudid 2 mg one-half to one tab q 4h prn incisional discomfort. 4. Oxygen @ 2 Lpm continuously or as directed by SpO2. FOLLOW UP APPOINTMENTS: 1. CV surgery: with Dr Cruz at [facility] on 09/24 at 11:30am. 2. Cardiology: with Dr Romero at [facility] within 4-6 weeks. Appointment to be established during surgical visit. FOLLOW UP TESTING: CXR prior to surgical appointment.
== END 2017-09-16 13:44 | disposition home or self-care (01) | DRG 236 ==
LOC: F2N 05:47 → F3N 05:47 → F2N 10:58 → F2W 09-15 11:20
PROVIDERS: ADMIT Thoracic Surgery (Cardiothoracic Vascular Surgery); ATTEND Thoracic Surgery (Cardiothoracic Vascular Surgery)
DX: I25.119 Atherosclerotic heart disease of native coronary artery with unspecified angina pectoris (principal); R06.89 Other abnormalities of breathing; D62 Acute posthemorrhagic anemia; I48.0 Paroxysmal atrial fibrillation; I11.9 Hypertensive heart disease without heart failure; Z21 Asymptomatic human immunodeficiency virus [HIV] infection status; I25.2 Old myocardial infarction; E78.5 Hyperlipidemia, unspecified; E53.8 Deficiency of other specified B group vitamins; F17.210 Nicotine dependence, cigarettes, uncomplicated; Z95.5 Presence of coronary angioplasty implant and graft; Z88.2 Allergy status to sulfonamides
CPT/HCPCS: 82947-QW; 97116-GP; 97162-GP; 97165-GO; 97535-GO; J0153; J0282; J0690; J1170; J1265; J1644; J1815; J1885; J1940; J2001; J2150; J2250; J2260; J2270; J2370; J2405; J2440; J2704; J2720; J2765; J2930; J3010; J3475; J3480; J7060; P9041

== ENCOUNTER → 2017-09-24 | Outpatient (CLI) | payer BC | LOC: FIMAGING 10:59 | PROVIDERS: ATTEND Thoracic Surgery (Cardiothoracic Vascular Surgery) | DX: I51.7 Cardiomegaly (principal); Z95.1 Presence of aortocoronary bypass graft ==

== ENCOUNTER → 2017-09-30 | Outpatient (CLI) | payer BC ==
[~2017-09-30] MED LIST changes: -AMINOCAPROIC ACID 5 GM/20 ML VIAL IV ONE; -INSULIN REGULAR HUMAN 100 UNIT in NS 100 ML IV ONE; +IOPAMIDOL (ISOVUE-300) 100 ML BTL ONE; -MANNITOL 25% 12.5 GM/50 ML VIAL IVP ONE; -NOREPINEPHRINE BITARTRATE 16 MG in NS 250 ML IV ONE; -PHENYLEPHRINE HCL 50 MG in NS 250 ML IV ONE; -SODIUM BICARBONATE 20 MEQ, LIDOCAINE 1% 10 ML in NORMOSOL-R 1,000 ML MISC ONE; -VERAPAMIL 5 MG, NITROGLYCERIN 2.5 MG, HEPARIN 500 UNIT, SODIUM BICARBONATE 0.2 MEQ in L... MISC ONE
== END ==
LOC: FIMAGING 09:05
PROVIDERS: ATTEND Thoracic Surgery (Cardiothoracic Vascular Surgery)
DX: J90 Pleural effusion, not elsewhere classified (principal); J98.11 Atelectasis; Z95.1 Presence of aortocoronary bypass graft; Z87.891 Personal history of nicotine dependence; Z98.890 Other specified postprocedural states
CPT/HCPCS: Q9967

== ENCOUNTER 2017-10-27 20:47 | Emergency (ER) | payer BC ==
[2017-10-27 22:08] LABS: PLATELET COUNT 230 10^3/uL (150-400)
[2017-10-27] MEDS ORDERED: CLINDAMYCIN 150 MG CAP PO ONE (22:46)
--- NOTE | 2017-10-27 23:22 | EDPHY ---
H & P Time Seen by Provider: 10/27/17 21:07 HPI/ROS: CHIEF COMPLAINT: Left leg pain HISTORY OF PRESENT ILLNESS: Patient states he had triple CABG performed on September [address] Cruz at this hospital. He states about 4 days ago he noticed redness in pain to the left inner thigh just proximal to the knee. This was the leg that he had his graft harvested from. The pain has continued. The redness is about the same but maybe slightly worse than it was when it started 4 days ago. It makes it difficult to walk. He denies fevers or chills. He has had no nausea or vomiting. Patient is HIV positive but has been on anti- retroviral treatment for many years with normal CD4 count and insignificant viral loads. He denies trauma. He was on Eliquis after his surgery he stopped that 4 days ago. Contents of 10 point review of systems otherwise negative except for what is mentioned in HPI. General Appearance: Alert, no distress. Eyes: Pupils equal and round no pallor or injection. ENT, Mouth: Mucous membranes moist. Respiratory: There are no retractions, lungs are clear to auscultation. Cardiovascular: Regular rate and rhythm. Gastrointestinal: Abdomen is soft and nontender, no masses, bowel sounds normal. Neurological: Awake and alert, normal cranial nerves. Skin: Warm and dry, no rashes. Left inner distal thigh with area of erythema and slight edema and tenderness to palpation. Compartments soft. Distal leg warm and well perfused although some sensory loss since surgery. Musculoskeletal: Neck is supple nontender. Extremities are symmetrical, full range of motion, no edema. Psychiatric: Patient is oriented X 3, there is no agitation. Medical/surgical history: HIV, coronary artery disease with stent, hypertension , hyperlipidemia, diverticulitis. Social history: Previous smoker stopped September 12. Smoking Status: Former smoker Constitutional: Initial Vital Signs Temperature (C) 36.9 C 10/27/17 20:48 Heart Rate 83 10/27/17 20:48 Respiratory Rate 18 10/27/17 20:48 Blood Pressure 133/77 H 10/27/17 20:48 O2 Sat (%) 94 10/27/17 20:48 O2 Delivery Mode Room Air Allergies/Adverse Reactions: Sulfa (Sulfonamide Antibiotics) Allergy (Verified 04/26/15 12:07) Home Medications: Medication Instructions Recorded Dolutegravir Sodium [Tivicay] 50 mg PO DAILY 09/12/17 Emtricitabine/Tenofovir [Truvada 1 tab PO DAILY 09/12/17 200MG/300MG (*)] Rosuvastatin Calcium [Crestor] 10 mg PO DAILY 09/12/17 Acetaminophen [Tylenol 325mg (*)] 325 - 650 mg PO Q4HRS PRN tab 09/16/17 Amiodarone HCl [Pacerone (*)] 200 mg PO BID #40 tab 09/16/17 Apixaban [Eliquis] 5 mg PO BID #60 tab 09/16/17 Aspirin [Aspirin 81mg (*)] 81 mg PO DAILY tab.chew 09/16/17 HYDROmorphone HCL [Dilaudid 2 mg 2 mg PO Q4HRS PRN #40 tab 09/16/17 (*)] Metoprolol Tartrate [Lopressor 25 12.5 mg PO BID #30 tab 09/16/17 mg (*)] Cephalexin [Keflex (*)] 500 mg PO QID 14 Days #56 cap 10/27/17 Clindamycin HCl [Clindamycin] 300 mg PO TID 14 Days #42 mg 10/27/17 Medical Decision Making - Diagnostics Imaging Results: Imaging Impressions Extremity Venous Study 10/27/17 21:31 Impression: No evidence of deep vein thrombosis in the left lower extremity. Results called and discussed with Skye Sheridan MD on 10/27/2017 at 22:27. Imaging: Discussed imaging studies w/ call circuit worker Radiologist ED Course/Re-evaluation: Re-evaluation after results of ultrasound. Discussed need for antibiotic treatment. No indication for admission at this time but will give 1st dose of antibiotics IV. Differential Diagnosis: Differential diagnosis includes but is not limited to cellulitis, fasciitis, DVT , wound infection. After evaluation suspect cellulitis likely as result of surgical intervention although now 6 weeks out. No signs of sepsis, necrotizing fasciitis, wound infection. No signs of deep vein thrombosis. Antibiotics initiated in the emergency department will be continued as outpatient for 14 days. Discussed return precautions in detail. Recommended warm compresses and close follow-up with cardiothoracic surgeon this week. Understands return precautions. Stable for discharge. - Data Points Laboratory Results: Laboratory Results 10/27/17 22:00 10/27/17 22:00 WBC 9.06 10^3/uL 10^3/uL (3.80-9.50) RBC 3.79 10^6/uL L 10^6/uL (4.40-6.38) Hgb 12.0 g/dL L g/dL (13.7-17.5) Hct 36.9 % L % (40.0-51.0) MCV 97.4 fL fL (81.5-99.8) MCH 31.7 pg pg (27.9-34.1) MCHC 32.5 g/dL g/dL (32.4-36.7) RDW 15.0 % % (11.5-15.2) Plt Count 230 10^3/uL 10^3/uL (150-400) MPV 10.8 fL fL (8.7-11.7) Neut % (Auto) 67.9 % % (39.3-74.2) Lymph % (Auto) 23.0 % % (15.0-45.0) Toole % (Auto) 6.8 % % (4.5-13.0) Eos % (Auto) 1.7 % % (0.6-7.6) Baso % (Auto) 0.4 % % (0.3-1.7) Nucleat RBC Rel Count 0.0 % % (0.0-0.2) Absolute Neuts (auto) 6.15 10^3/uL 10^3/uL (1.70-6.50) Absolute Lymphs (auto) 2.08 10^3/uL 10^3/uL (1.00-3.00) Absolute Monos (auto) 0.62 10^3/uL 10^3/uL (0.30-0.80) Absolute Eos (auto) 0.15 10^3/uL 10^3/uL (0.03-0.40) Absolute Basos (auto) 0.04 10^3/uL 10^3/uL (0.02-0.10) Absolute Nucleated RBC 0.00 10^3/uL 10^3/uL (0-0.01) Immature Gran % 0.2 % % (0.0-1.1) Immature Gran # 0.02 10^3/uL 10^3/uL (0.00-0.10) Medications Given: Discontinued Medications Clindamycin (Clindamycin) 300 mg PO EDNOW ONE PRN Reason: Protocol Stop: 10/27/17 22:47 Last Admin: 10/27/17 23:21 Dose: 300 mg Ceftriaxone Sodium/Dextrose (Rocephin 1 Gm (Premix)) 50 mls @ 100 mls/hr IV EDNOW ONE PRN Reason: Protocol Stop: 10/27/17 23:14 Last Admin: 10/27/17 23:18 Dose: 50 mls Departure - Departure Disposition: Home, Routine, Self-Care Clinical Impression: Cellulitis Condition: Good Instructions: Cellulitis (ED) Additional Instructions: Warm compresses as discussed. Call your cardiovascular surgeon tomorrow for follow-up. Return to the emergency department if symptoms worsen. Referrals: Mel Wiggins MD [Primary Care Provider] - As per Instructions Prescriptions: Cephalexin [Keflex (*)] 500 mg PO QID 14 Days #56 cap Clindamycin HCl [Clindamycin] 300 mg PO TID 14 Days #42 mg
[2017-10-27 23:24] VITALS: BP 109/66
== END 2017-10-27 23:52 | disposition home or self-care (01) ==
DX: L03.116 Cellulitis of left lower limb (principal); B20 Human immunodeficiency virus [HIV] disease; I25.810 Atherosclerosis of coronary artery bypass graft(s) without angina pectoris; I10 Essential (primary) hypertension; Z79.82 Long term (current) use of aspirin; Z87.891 Personal history of nicotine dependence; Z95.5 Presence of coronary angioplasty implant and graft
CPT/HCPCS: 96365; J0696